=== PATIENT | female | born 1950 | race Caucasian/White ===

== ENCOUNTER 2019-07-12 10:21 | Outpatient (CLI) | payer MEDICARE, SELFPAY ==
[2019-07-12 10:34] LABS: Add Urine Microscopic? YES; Appearance Urine Clear (Clear); Bilirubin Urine Negative (Negative); Blood Urine 1+ (Negative); Color Urine Yellow (Yellow); Glucose Urine UA Negative (Negative); Ketones Urine Negative (Negative); Leukocyte Esterase Ur 2+ (Negative); Nitrate Urine Negative (Negative); Protein Urine Negative (Negative); Specific Grav Ur 1.025 (1.010-1.020); Urobilinogen Urine 0.2 mg/dL (0.2-1.0); pH Urine 5.5 (5.0-8.0)
[2019-07-12 11:03] LABS: Bacteria Urine 1+ /hpf; RBC Urine 0-2 /hpf (0-2); Squamous Epithelial Cell Urine Few /hpf (Few)
== END 2019-07-12 10:22 | disposition home or self-care (01) ==
LOC: CHSLAB 10:23
PROVIDERS: PCP Internal Medicine; Visit Provider Internal Medicine
DX: N39.0 Urinary tract infection, site not specified (principal)
CPT/HCPCS: 81001; 87086; 87088

== ENCOUNTER 2019-11-27 09:45 | Outpatient (CLI) | payer MEDICARE, SELFPAY ==
--- NOTE | ~2019-11-27 | DEXA_ITS ---
BMD(1) Young-Adult(2) Age-Matched(3) Region (g/cm2) T-score Z-score WHO Classification L1 1.104 -0.3 1.3 Normal L2 1.190 -0.2 1.4 Normal L3 1.080 -1.1 0.5 Osteopenia L4 1.137 -0.6 1.0 Normal L1-L4 1.129 -0.5 1.1 Normal Trend: L1-L4 Change vs Change vs Measured Age BMD(1) Baseline Previous Date (years) (g/cm2) (%) (%) 11[age]27/2019 [age] 1.129 6.1* 14.2* 11/24/2017 [age] 1.006 -5.5* -0.1 10/03/2014 [age] 1.007 -5.4* -5.4* 11/17/2008 [age] 1.064 baseline - * - Indicates significant change based on 95% confidence interval. 1 - Statistically 68% of repeat scans fall within 1SD (+- 0.010 g/cm2 for AP Spine L1-L4) 2 - [place] (Combined NHANES (ages 20-30) / KTM Advance (ages 20-40)) AP Spine Reference Population (v112) 3 - Matched for Age, Weight (females 25-100 kg), Ethnic 11 - World Health Organization - Definition of Osteoporosis and Osteopenia for Women: Normal = T-score at or above -1.0 SD; Osteopenia = T-score between -1.0 and -2.5 SD; Osteoporosis = T-score at or below -2.5 SD; (WHO definitions only apply when a young healthy Women reference database is used to determine T-scores.) Printed: 11/27/2019 10:14:33 AM (13.60)76:3.00:50.00:12.0 0.00:7.98 0.60x1.05 23.1:%Fat=40.7% 0.00:0.00 0.00:0.00 Verify bone is centered and there is sufficient tissue next to bone. Filename: [id number] Scan Mode: Standard;OneScan 37.0 [place] [id number] BMD(1) Young-Adult(2,7) Age-Matched(3) Region (g/cm2) T-score Z-score WHO Classification Neck Left 0.840 -1.4 0.1 Osteopenia Right 0.829 -1.5 0.0 Osteopenia Mean 0.835 -1.5 0.1 Osteopenia Difference 0.011 -0.1 -0.1 - Total Left 0.876 -1.0 0.3 Normal Right 0.814 -1.5 -0.2 Osteopenia Mean 0.845 -1.3 0.0 Osteopenia Difference 0.062 -0.5 -0.5 - Hip [place] Length Comparison (mm) (Right = 107.7 mm) (Mean = 105.3 mm) (Left = 104.0 mm) Trend: Total Mean Change vs Change vs Measured Age BMD(1) Baseline Previous Date (years) (g/cm2) (%) (%) 11[age]27/2019 [age] 0.845 -1.2 4.1* 10/03/2014 64.3 0.812 -5.0* -5.0* 11/17/2008 [age] 0.855 baseline - * - Indicates significant change based on 95% confidence interval. 1 - Statistically 68% of repeat scans fall within 1SD (+- 0.010 g/cm2 for DualFemur Total) 2 - [place] (Combined NHANES (ages 20-30) / KTM Advance (ages 20-40)) Femur Reference Population (v112) 3 - Matched for Age, Weight (females 25-100 kg), Ethnic 7 - DualFemur Total T-score difference is 0.5. Asymmetry is None. 11 - World Health Organization - Definition of Osteoporosis and Osteopenia for Women: Normal = T-score at or above -1.0 SD; Osteopenia = T-score between -1.0 and -2.5 SD; Osteoporosis = T-score at or below -2.5 SD; (WHO definitions only apply when a young healthy Women reference database is used to determine T-scores.) Printed: 11/27/2019 10:14:33 AM (13.60); Filename: [id number]; Right Femur; 17.2:%Fat=31.4%; Neck Angle (deg)= 60; Scan Mode: Standard 37.0 uGy; Left Femur; 17.0:%Fat=33.2%; Neck Angle (deg)= 63; Scan Mode: Standard 37.0 uGy Kohort [id number] Dear Alec Felder, Your patient Elo Zavaleta completed a BMD test on 11/27/2019 using the Kohort DXA System (analysis gabirel
== END 2019-11-27 09:46 | disposition home or self-care (01) ==
PROVIDERS: PCP Internal Medicine; Visit Provider Internal Medicine
DX: M81.0 Age-related osteoporosis without current pathological fracture (principal)
CPT/HCPCS: 77080

== ENCOUNTER 2019-12-06 10:54 | Outpatient (CLI) | payer MEDICARE, SELFPAY ==
--- NOTE | ~2019-12-06 | MM_ITS ---
EXAMINATION: MM screening [facility] BI w rosario HISTORY: Screening mammogram TECHNIQUE: Craniocaudal and mediolateral oblique 3-D tomosynthesis images were obtained and synthetic 2-D images were generated. CAD analysis was submitted and interpreted. COMPARISON: 12/04/2018, 11/15/1917, 10/10/2016 BREAST PARENCHYMAL COMPOSITION: There are scattered areas of fibroglandular density. FINDINGS: There is no evidence of suspicious mass, calcification, or architectural distortion to sugg est malignancy in either breast. There has been no suspicious interval change. IMPRESSION: 1. No mammographic evidence of malignancy. 2. Recommend routine screening mammography in one year. BI-RADS Category 1: Negative Reviewed, dictated and finalized at location A.
== END 2019-12-06 10:55 | disposition home or self-care (01) ==
PROVIDERS: PCP Internal Medicine; Visit Provider Internal Medicine
DX: Z12.31 Encounter for screening mammogram for malignant neoplasm of breast (principal)
CPT/HCPCS: 77063; 77067

== ENCOUNTER 2020-02-12 07:07 | Outpatient (CLI) | payer MEDICARE, SELFPAY ==
[2020-02-12 07:51] LABS: Add Urine Microscopic? NO; Appearance Urine Clear (Clear); Bilirubin Urine Negative (Negative); Blood Urine Negative (Negative); Color Urine Yellow (Yellow); Glucose Urine UA Negative (Negative); Ketones Urine Negative (Negative); Leukocyte Esterase Ur Negative (Negative); Nitrate Urine Negative (Negative); Protein Urine Negative (Negative); Specific Grav Ur 1.025 (1.010-1.020); Urobilinogen Urine 0.2 mg/dL (0.2-1.0)
[2020-02-12 08:41] LABS: Alanine Aminotransferase 24 U/L (14-59); Albumin Level 3.8 g/dL (3.4-5.0); Alkaline Phosphatase 59 U/L (46-116); Anion Gap 9 mmol/L (8-16); Aspartate Amino Transferase 20 U/L (15-37); Bilirubin,Total 0.4 mg/dL (0.00-1.00); Blood Urea Nitrogen 17 mg/dL (7-18); Calcium 9.1 mg/dL (8.5-10.1); Carbon Dioxide 27 mmol/L (21-32); Chloride 106 mmol/L (98-108); Cholesterol 220 mg/dL (0-200); Estimated Glomerular Filt Rate > 60; Free T3 2.27 pg/mL (2.18-3.98); Free T4 Free Thyroxine 1.05 ng/dL (0.76-1.46); Glucose 91 mg/dL (70-99); HDL Direct 67 mg/dL (40-60); LDL Cholesterol Calculated 139 mg/dL (<130); Osmolality Calculated 295 mOsm/kg (285-295); Potassium 4.5 mmol/L (3.5-5.1); Sodium 142 mmol/L (136-145); Thyroid Stimulating Hormone 1.69 uIU/mL (0.36-3.74); Total Protein 7.3 g/dL (6.4-8.2); Triglycerides 72 mg/dL (0-150)
[2020-02-15 10:22] LABS: Vitamin D 25 Hydroxy 29 ng/mL (30-100)
== END 2020-02-12 07:08 | disposition home or self-care (01) ==
PROVIDERS: PCP Internal Medicine; Visit Provider Internal Medicine
DX: E03.4 Atrophy of thyroid (acquired) (principal); E78.2 Mixed hyperlipidemia; M81.0 Age-related osteoporosis without current pathological fracture
CPT/HCPCS: 36415; 80053; 80061; 81003; 82306; 84439; 84443; 84481

== ENCOUNTER 2020-09-07 07:01 | Outpatient (CLI) | payer MEDICARE, SELFPAY ==
[2020-09-07 07:32] LABS: Appearance Urine Clear (Clear); Bilirubin Urine Negative (Negative); Color Urine Yellow (Yellow); Glucose Urine UA Negative (Negative); Ketones Urine Negative (Negative); Leukocyte Esterase Ur 1+ (Negative); Nitrate Urine Negative (Negative); Protein Urine Negative (Negative); Urobilinogen Urine 0.2 mg/dL (0.2-1.0); pH Urine 5.5 (5.0-8.0)
[2020-09-07 07:39] LABS: Add Urine Microscopic? YES; Bacteria Urine Trace /hpf; Blood Urine Trace-Intact (Negative); RBC Urine 0-2 /hpf (0-2); Squamous Epithelial Cell Urine Few /hpf (Few); WBC Urine 0-3 /hpf (0-3)
[2020-09-07 08:30] LABS: Alanine Aminotransferase 26 U/L (14-59); Albumin Level 3.8 g/dL (3.4-5.0); Alkaline Phosphatase 59 U/L (46-116); Anion Gap 4 mmol/L (8-16); Aspartate Amino Transferase 20 U/L (15-37); Bilirubin,Total 0.6 mg/dL (0.00-1.00); Blood Urea Nitrogen 24 mg/dL (7-18); Calcium 9.3 mg/dL (8.5-10.1); Carbon Dioxide 29 mmol/L (21-32); Chloride 105 mmol/L (98-108); Cholesterol 207 mg/dL (0-200); Creatine Kinase 122 U/L (26-192); Estimated Glomerular Filt Rate > 60; Free T3 2.53 pg/mL (2.18-3.98); Free T4 Free Thyroxine 1.03 ng/dL (0.76-1.46); Glucose 88 mg/dL (70-99); HDL Direct 66 mg/dL (40-60); LDL Cholesterol Calculated 124 mg/dL (<130); Osmolality Calculated 289 mOsm/kg (285-295); Potassium 4.6 mmol/L (3.5-5.1); Sodium 138 mmol/L (136-145); Thyroid Stimulating Hormone 2.84 uIU/mL (0.36-3.74); Total Protein 7.1 g/dL (6.4-8.2); Triglycerides 87 mg/dL (0-150)
[2020-09-09 18:17] LABS: Vitamin D 25 Hydroxy 30 ng/mL (30-100)
== END 2020-09-07 07:02 | disposition home or self-care (01) ==
LOC: CHSLAB 07:02
PROVIDERS: PCP Internal Medicine; Visit Provider Internal Medicine
DX: M81.0 Age-related osteoporosis without current pathological fracture (principal); E78.2 Mixed hyperlipidemia; E03.4 Atrophy of thyroid (acquired)
CPT/HCPCS: 36415; 80053; 80061; 81001; 82306; 82550; 84439; 84443; 84481

== ENCOUNTER 2020-09-23 08:36 | Outpatient (CLI) | payer MEDICARE, SELFPAY ==
--- NOTE | ~2020-09-23 | XR_ITS ---
EXAMINATION: XR_CERV2-3V_CR EXAM DATE: 09/23/2020 08:58 INDICATION: No known recent injury provided at this time. Pain of the neck. Limited range of motion. TECHNIQUE: Cervical spine frontal, lateral, open-mouth odontoid projections. There is no prior stud y for comparison. FINDINGS: There is moderate disc disease at C6-7, mild at the other cervical levels. Overall moderat e cervical facet arthropathy and lower cervical uncovertebral joint arthropathy. There is no evidence of acute cervical fracture. The odontoid process is intact. Pre-dens space is normal. Prevertebra l soft tissue is normal. There are no soft tissue abnormalities identified. The vertebral bodies ar e aligned in the AP dimension. Incidental numerous punctate lung calcifications, granulomata. IMPRESSION: 1. Moderate C6-7 disc disease. 2. Moderate arthropathy. Reviewed, dictated and finalized at location A.
== END 2020-09-23 08:37 | disposition home or self-care (01) ==
LOC: CHSIMG 08:37
PROVIDERS: PCP Internal Medicine; Visit Provider Internal Medicine
DX: M54.2 Cervicalgia (principal)
CPT/HCPCS: 72040

== ENCOUNTER 2020-09-30 15:50 | Outpatient (CLI) | payer MEDICARE, SELFPAY ==
--- NOTE | ~2020-09-30 | MR_ITS ---
EXAMINATION: MR cervical spine wo con DATE: 09/30/2020 20:10 INDICATION: Neck pain. TECHNIQUE: Magnetic resonance imaging (MRI) of the cervical spine was performed without intravenous c ontrast. Sequences included sagittal T2-weighted FSE, sagittal T2-weighted FS FSE, sagittal T1-weight ed FSE, axial MERGE, and axial T2-weighted FSE. COMPARISON: Cervical spine MRI 07/15/2008 FINDINGS: Bone alignment is normal. Vertebral body heights are normal. There is moderately decreased disc height at C6-C7. The spinal cord signal intensity is normal. The following disc levels are speci fically discussed: C2-C3: The disc does not extend beyond the endplate margin. There is no uncovertebral joint osteoarth ritis. There is moderate right and mild left facet joint osteoarthritis. There is no neural foraminal stenosis. There is no central canal stenosis. C3-C4: The disc does not extend beyond the endplate margin. There is no uncovertebral joint osteoarth ritis. There is mild bilateral facet joint osteoarthritis. There is no neural foraminal stenosis. The re is no central canal stenosis. C4-C5: The disc is bulging. There is no uncovertebral joint osteoarthritis. There is moderate left fa cet joint osteoarthritis. There is no neural foraminal stenosis. There is mild central canal stenosis . C5-C6: The disc is bulging. There is mild right uncovertebral joint osteoarthritis. There is mild ravi ateral facet joint osteoarthritis. There is mild right neural foraminal stenosis. There is mild centr al canal stenosis. C6-C7: The disc is bulging. There is moderate bilateral uncovertebral joint osteoarthritis. There is mild bilateral facet joint osteoarthritis. There is moderate bilateral neural foraminal stenosis. The re is mild central canal stenosis. C7-T1: There is a central protrusion. There is no uncovertebral joint osteoarthritis. There is modera te bilateral facet joint osteoarthritis. There is no neural foraminal stenosis. There is no central c anal stenosis. IMPRESSION: 1. Moderate cervical spondylosis, worsened from 07/15/2008. Reviewed, dictated and finalized at location A.
== END 2020-09-30 15:51 | disposition home or self-care (01) ==
LOC: CHSIMG 15:50
PROVIDERS: PCP Internal Medicine; Visit Provider Internal Medicine
DX: M54.2 Cervicalgia (principal); M47.812 Spondylosis without myelopathy or radiculopathy, cervical region
CPT/HCPCS: 72141

== ENCOUNTER 2020-12-08 10:12 | Outpatient (CLI) | payer MEDICARE, SELFPAY ==
--- NOTE | ~2020-12-08 | DEXA_ITS ---
Bone Density Report Name: Elo Zavaleta Age: 70 Sex: Female Ethnicity: White Date of : 1950 Indication: osteopenia; monitoring treatment; height loss; hysterectomy; Referring Provider: Alec Felder Study: Bone densitometry was performed. Exam Date: December 08, 2020 Accession number: [id number] Bone Density: Region BMD T-score Z-score Classification AP Spine(L1-L4) 0.959 -0.8 1.2 Normal Femoral Neck (Left) 0.669 -1.6 0.1 Osteopenia Total Hip (Left) 0.809 -1.1 0.3 Osteopenia Femoral Neck (Right) 0.688 -1.4 0.3 Osteopenia Total Hip (Right) 0.754 -1.5 -0.1 Osteopenia Femoral Neck Mean 0.679 -1.5 0.2 Osteopenia Total Hip Mean 0.782 -1.3 0.1 Osteopenia World Health Organization criteria for BMD impression classify patients as: Normal (T-score at or above -1.0), Osteopenia (T-score between -1.0 and -2.5), or Osteoporosis (T-score at or below -2.5). 10-year Fracture Risk: FRAX not reported because: Treated for osteoporosis Previous Exams: Region Exam Age BMD T-score BMD Change BMD Change Date g/cm2 vs Baseline vs Previous AP Spine (L1-L4) 12/08/2020 70 0.959 -0.8 0.020 (2.1%)# -0.040 (-4.0%) 11/27/2019 69 0.998 -0.4 0.059 (6.3%)* 0.113 (12.8%)* 11/24/2017 67 0.885 -1.5 -0.054 (-5.7%) -0.001 (-0.2%) 10/03/2014 64 0.887 -1.5 -0.052 (-5.6%) -0.052 (-5.6%) 11/17/2008 58 0.939 -1.0 Total Hip(Left) 12/08/2020 70 0.809 -1.1 -0.006 (-0.7%) -0.005 (-0.6%) 11/27/2019 69 0.814 -1.1 -0.002 (-0.2%) 0.020 (2.5%) 11/24/2017 67 0.794 -1.2 -0.021 (-2.6%) 0.014 (1.9%) 10/03/2014 64 0.779 -1.3 -0.036 (-4.4%) -0.036 (-4.4%) 11/17/2008 58 0.815 -1.0 Total Hip(Right) 12/08/2020 70 0.754 -1.5 -0.017 (-2.2%) 0.001 (0.1%)# 11/27/2019 69 0.753 -1.5 -0.017 (-2.3%) 0.029 (4.1%)* 10/03/2014 64 0.724 -1.8 -0.047 (-6.1%) -0.047 (-6.1%) 11/17/2008 58 0.771 -1.4 *Denotes significance at 95% confidence level, LSC for AP Spine = 0.022 g/cm2, LSC for Total Hip = 0.027 g/cm2 # Denotes dissimilar scan types or analysis methods Clinical Information Provided by Patient: Is being treated for osteoporosis Has used the following medications: Boniva (i.e. ibandronate), Fosamax (i.e. alendronate), Prolia (i.e. denosumab), Vitamin D Has the following medical conditions: Hysterectomy Patient maximum height was 66 Menopause Age: 40 No regular weight bearing exercise Drinks caffeinated beverages Onset of menses at age 12 Numb
--- NOTE | ~2020-12-08 | MM_ITS ---
EXAMINATION: MM screening [facility] BI w rosario HISTORY: Screening mammogram TECHNIQUE: Craniocaudal and mediolateral oblique 3-D tomosynthesis images were obtained and synthetic 2-D images were generated. CAD analysis was submitted and interpreted. COMPARISON: 12/06/2019, 12/14/2018, 11/24/2017 bilateral digital screening mammogram examinations BREAST PARENCHYMAL COMPOSITION: There are scattered areas of fibroglandular density. FINDINGS: There is no evidence of suspicious mass, calcification, or architectural distortion to sugg est malignancy in either breast. There has been no suspicious interval change. IMPRESSION: 1. No mammographic evidence of malignancy. 2. Recommend routine screening mammography in one year. BI-RADS Category 1: Negative Reviewed, dictated and finalized at location B.
== END 2020-12-08 10:13 | disposition home or self-care (01) ==
LOC: CHSIMG 10:13
PROVIDERS: PCP Internal Medicine; Visit Provider Internal Medicine
DX: M81.0 Age-related osteoporosis without current pathological fracture (principal); Z12.31 Encounter for screening mammogram for malignant neoplasm of breast
CPT/HCPCS: 77063; 77067; 77080

== ENCOUNTER 2021-01-21 07:53 | Outpatient (RCR) | payer MEDICARE, SELFPAY ==
--- NOTE | 2021-01-21 09:02 | PTOPEVAL ---
Thank you for referring Elo Zavaleta to [facility].? The patient is scheduled to be seen for therapy? ____x/week for ___ weeks. Please review, sign, date and return this plan of care ROXANNA. I agree with and certify that the following plan of care is medically necessary. Referring Physician Date Admitting Provider: Attending Provider: Kyleigh Perez, PATIENT CARRIER-BC Referring Provider: *PT Outpatient Evaluation Start: 01/21/21 07:57 Freq: Status: Active Protocol: Document 01/21/21 07:58 ACR (Rec: 01/21/21 09:02 ACR [id number]) Therapy Assessment Status Assessment Status Assessment Status Evaluation Evaluation Information Problem Diagnosis neck pain Onset 10/16/20 Subjective Information Patient states that she Query Text:As Reported By Patient/ started having neck pain a Family couple months ago. She states that she got an injection on . She states that she does not have any radicular symptoms. She states that her arthritis is so bad that she drops things frequently. She states that she has the most difficulty at night when she watches TV to find proper support on her neck. Patient states she has difficulty with heavy lifting and working overhead. She states that she is unable to sit in a chair and look to her L because it causes a pulling and aching feeling. The patient states that her goal for therapy is to decrease pain. Prior Level of Function Activity Level (Last 3 Months) Occupation retired Hand Dominance Right Activity of Daily Living Ability Independent Indoor/Home Mobility Independent Community Mobility Independent Stairs Ability Independent Functional Cognition (Planning, Shopping Independent , Taking Medications) Cooking Yes Cleaning Yes Laundry Yes Shopping Yes Driving Yes Pain Assessment Timing of Pain Assessment Timing of Pain Assessment Assessment Pain Scale Pain Scale Used Numeric (1 - 10) Self Report Pain Assessment Neck Reported Pain Level 0 Greatest Pain
--- NOTE | 2021-02-16 08:49 | PTOPEVAL ---
Thank you for referring Elo Zavaleta to [facility].? The patient is scheduled to be seen for therapy? ____x/week for ___ weeks. Please review, sign, date and return this plan of care ROXANNA. I agree with and certify that the following plan of care is medically necessary. Referring Physician Date Admitting Provider: Attending Provider: Kyleigh Perez, DATA ANALYTICS ARCHITECT-BC Referring Provider: *PT Outpatient Evaluation Start: 01/21/21 07:57 Freq: Status: Active Protocol: Document 02/16/21 08:00 ACR (Rec: 02/16/21 08:48 ACR [id number]) Therapy Assessment Status Assessment Status Assessment Status Discharge Evaluation Information Problem Diagnosis neck pain Onset 10/16/20 Subjective Information Patient reports that since Query Text:As Reported By Patient/ beginning therapy she is able Family to do everything that she needs to do without significant increase in pain. She states that if she overdoes it then she gets some achiness in her neck. She states she does her HEP at home and would like to be discharged at this time. Pain Assessment Timing of Pain Assessment Timing of Pain Assessment Assessment Pain Scale Pain Scale Used Numeric (1 - 10) Self Report Pain Assessment Neck Reported Pain Level 1 Greatest Pain Intensity 3 Pain Score Pain Score 1: Self Report Interventions Used Interventions Used By Clinicians Activity or ADL's,Exercise Cervical and Lumbar ROM Cervical ROM Cervical Flexion (0-60) 48 Query Text:Active in Degrees Cervical Extension (0-70) 45 Query Text:Active in Degrees Cervical Lateral Flexion Right (0-50) 45 Query Text:Active in Degrees Cervical Lateral Flexion Left (0-50) 40 Query Text:Active in Degrees Cervical Rotation Right (0-90) 82 Query Text:Active in Degrees Cervical Rotation Left (0-90) 86 Query Text:Active in Degrees Cervical and Lumbar Muscle Testing Cervical Muscle Testing Cervical Flexion 4+ Good+ Upper Extremity Muscle Strength Testing Scapular/Shoulder Right Shoulder Flexion Strength 5 Normal Shoulder Abduction Strength 5 Normal Shoulder Medial Rotation Strength 5 Normal Shoulder Lateral Rotation Strength 5 Normal Left Shoulder Flexion Strength 5 Normal Shoulder Abduction Strength 5 Normal Shoulder Medial Rotation Strength 5 Normal Shoulder Lateral Rotation Strength 5 Normal Muscle Length Testing Muscle Length Testing Upper Trapezius Muscle Length (R) Mild
== END 2021-02-16 10:20 | disposition home or self-care (01) ==
LOC: CHSPT 07:53
PROVIDERS: PCP Internal Medicine; Visit Provider Nurse Practitioner Adult Health
DX: M54.12 Radiculopathy, cervical region (principal); M54.2 Cervicalgia; M79.10 Myalgia, unspecified site
CPT/HCPCS: 97014; 97110; 97140; 97161; G0283

== ENCOUNTER 2021-03-05 07:27 | Outpatient (CLI) | payer MEDICARE, SELFPAY ==
[2021-03-05 07:50] LABS: Appearance Urine Clear (Clear); Bilirubin Urine Negative (Negative); Color Urine Light Yellow (Yellow); Glucose Urine UA Negative (Negative); Ketones Urine Negative (Negative); Leukocyte Esterase Ur 1+ (Negative); Nitrate Urine Negative (Negative); Protein Urine Negative (Negative); Specific Grav Ur <= 1.005 (1.010-1.020); Urobilinogen Urine 0.2 mg/dL (0.2-1.0); pH Urine 6.5 (5.0-8.0)
[2021-03-05 08:01] LABS: Add Urine Microscopic? YES; Bacteria Urine Trace /hpf; Blood Urine Trace-Intact (Negative); RBC Urine None seen /hpf (0-2); Squamous Epithelial Cell Urine Few /hpf (Few); WBC Urine 0-3 /hpf (0-3)
[2021-03-05 08:51] LABS: Alanine Aminotransferase 28 U/L (14-59); Albumin Level 3.9 g/dL (3.4-5.0); Alkaline Phosphatase 60 U/L (46-116); Anion Gap 6 mmol/L (8-16); Aspartate Amino Transferase 17 U/L (15-37); Bilirubin,Total 0.5 mg/dL (0.00-1.00); Blood Urea Nitrogen 25 mg/dL (7-18); Calcium 8.8 mg/dL (8.5-10.1); Carbon Dioxide 31 mmol/L (21-32); Chloride 105 mmol/L (98-108); Cholesterol 224 mg/dL (0-200); Estimated Glomerular Filt Rate > 60; Free T3 2.13 pg/mL (2.18-3.98); Free T4 Free Thyroxine 0.98 ng/dL (0.76-1.46); Glucose 81 mg/dL (70-99); HDL Direct 68 mg/dL (40-60); LDL Cholesterol Calculated 144 mg/dL (<130); Osmolality Calculated 297 mOsm/kg (285-295); Potassium 4.6 mmol/L (3.5-5.1); Sodium 142 mmol/L (136-145); Thyroid Stimulating Hormone 3.12 uIU/mL (0.36-3.74); Total Protein 7.4 g/dL (6.4-8.2); Triglycerides 61 mg/dL (0-150)
[2021-03-09 00:28] LABS: Vitamin D 25 Hydroxy 32 ng/mL (30-100)
== END 2021-03-05 07:28 | disposition home or self-care (01) ==
LOC: CHSLAB 07:29
PROVIDERS: PCP Internal Medicine; Visit Provider Internal Medicine
DX: M81.0 Age-related osteoporosis without current pathological fracture (principal); I10 Essential (primary) hypertension; E78.2 Mixed hyperlipidemia; E03.4 Atrophy of thyroid (acquired)
CPT/HCPCS: 36415; 80053; 80061; 81001; 82306; 84439; 84443; 84481

== ENCOUNTER 2021-06-07 09:35 | Outpatient (CLI) | payer MEDICARE, SELFPAY ==
[2021-06-07 10:38] LABS: SARS-CoV-2 Ag Positive (Negative)
[2021-06-07 11:04] LABS: Influenza Control Valid (Valid)
== END 2021-06-07 09:36 | disposition home or self-care (01) ==
LOC: CHSLAB 09:38
PROVIDERS: PCP Internal Medicine; Visit Provider Internal Medicine
DX: U07.1 COVID-19 (principal); J06.9 Acute upper respiratory infection, unspecified
CPT/HCPCS: 87081; 87426; 87804; 87880; C9803

== ENCOUNTER 2021-06-21 07:05 | Outpatient (CLI) | payer MEDICARE, SELFPAY ==
[2021-06-21 08:04] LABS: Alanine Aminotransferase 23 U/L (14-59); Albumin Level 3.6 g/dL (3.4-5.0); Alkaline Phosphatase 60 U/L (46-116); Anion Gap 10 mmol/L (8-16); Aspartate Amino Transferase 16 U/L (15-37); Bilirubin,Total 0.3 mg/dL (0.00-1.00); Blood Urea Nitrogen 23 mg/dL (7-18); Calcium 9.1 mg/dL (8.5-10.1); Carbon Dioxide 26 mmol/L (21-32); Chloride 105 mmol/L (98-108); Cholesterol 213 mg/dL (0-200); Estimated Glomerular Filt Rate > 60; Free T3 2.27 pg/mL (2.18-3.98); Free T4 Free Thyroxine 1.14 ng/dL (0.76-1.46); Glucose 92 mg/dL (70-99); HDL Direct 61 mg/dL (40-60); LDL Cholesterol Calculated 138 mg/dL (<130); Osmolality Calculated 295 mOsm/kg (285-295); Potassium 4.5 mmol/L (3.5-5.1); Sodium 141 mmol/L (136-145); Thyroid Stimulating Hormone 0.49 uIU/mL (0.36-3.74); Total Protein 6.9 g/dL (6.4-8.2); Triglycerides 70 mg/dL (0-150)
== END 2021-06-21 07:06 | disposition home or self-care (01) ==
LOC: CHSLAB 07:07
PROVIDERS: PCP Internal Medicine; Visit Provider Internal Medicine
DX: E03.4 Atrophy of thyroid (acquired) (principal); E78.2 Mixed hyperlipidemia; I10 Essential (primary) hypertension
CPT/HCPCS: 36415; 80053; 80061; 84439; 84443; 84481

== ENCOUNTER 2021-12-10 07:19 | Outpatient (CLI) | payer MEDICARE, SELFPAY ==
--- NOTE | ~2021-12-10 | MM_ITS ---
EXAMINATION: MM screening [facility] BI w rosario HISTORY: Screening mammogram TECHNIQUE: Craniocaudal and mediolateral oblique 3-D tomosynthesis images were obtained and synthetic 2-D images were generated. CAD analysis was submitted and interpreted. COMPARISON: 12/08/2020, 12/06/2019, 12/04/2018 BREAST PARENCHYMAL COMPOSITION: There are scattered areas of fibroglandular density. FINDINGS: Stable focal asymmetry is noted in the upper outer quadrant of the left breast. There is no suspicious mass, calcification, or architectural distortion to suggest malignancy in either breast. There has been no suspicious interval change. IMPRESSION: 1. No mammographic evidence of malignancy. 2. Recommend routine screening mammography in one year. BI-RADS Category 2: Benign finding(s). Reviewed, dictated and finalized at location A.
== END 2021-12-10 07:20 | disposition home or self-care (01) ==
LOC: CHSIMG 07:20
PROVIDERS: PCP Internal Medicine; Visit Provider Internal Medicine
DX: Z12.31 Encounter for screening mammogram for malignant neoplasm of breast (principal)
CPT/HCPCS: 77063; 77067

== ENCOUNTER 2022-01-05 08:11 | Outpatient (CLI) | payer MEDICARE, SELFPAY ==
[2022-01-05 08:23] LABS: Add Urine Microscopic? YES; Appearance Urine Clear (Clear); Basophils Absolute Auto 0.08 K/mm3 (0.00-0.10); Bilirubin Urine Negative (Negative); Blood Urine Negative (Negative); Color Urine Light Yellow (Yellow); Eosinophils Absolute Auto 0.42 K/mm3 (0.02-0.50); Eosinophils Percent Auto 5.4 % (1.0-6.0); Glucose Urine UA Negative (Negative); Hematocrit 37.1 % (35.0-42.0); Hemoglobin 11.9 g/dL (11.7-13.8); Immature Granulocyte Absolute 0.03 K/mm3 (0.00-0.00); Immature Granulocyte Percent A 0.4 % (0.0-0.0); Ketones Urine Negative (Negative); Leukocyte Esterase Ur Trace (Negative); Lymphocytes Absolute Auto 1.29 K/mm3 (1.10-4.50); Lymphocytes Percent Auto 16.7 % (18.0-42.0); Mean Corpuscular HGB Conc 32.1 g/dL (32.0-36.0); Mean Corpuscular Hemoglobin 30.4 pg (27.0-31.0); Mean Corpuscular Volume 94.6 fL (78.0-102.0); Mean Platelet Volume 9.5 fl (9.2-11.8); Monocytes Absolute Auto 0.66 K/mm3 (0.10-0.90); Monocytes Percent Auto 8.5 % (2.0-11.0); Neutrophils Absolute Auto 5.2 K/mm3 (1.7-7.2); Nitrate Urine Positive (Negative); Platelet Count Result 288 K/mm3 (150-420); Protein Urine Negative (Negative); Red Blood Count 3.92 M/mm3 (4.20-5.40); Red Cell Distribution Width 12.6 % (11.6-14.4); Urobilinogen Urine 0.2 mg/dL (0.2-1.0); White Blood Count 7.7 K/mm3 (4.8-10.8)
[2022-01-05 08:40] LABS: RBC Urine None seen /hpf (0-2); Squamous Epithelial Cell Urine Occasional /hpf (Few); WBC Urine 0-3 /hpf (0-3)
[2022-01-05 08:41] LABS: Bacteria Urine 3+ /hpf
[2022-01-05 09:17] LABS: Alanine Aminotransferase 155 U/L (14-59); Albumin Level 3.9 g/dL (3.4-5.0); Alkaline Phosphatase 67 U/L (46-116); Anion Gap 8 mmol/L (8-16); Aspartate Amino Transferase 84 U/L (15-37); Bilirubin,Total 0.5 mg/dL (0.00-1.00); Blood Urea Nitrogen 25 mg/dL (7-18); Calcium 9.5 mg/dL (8.5-10.1); Carbon Dioxide 28 mmol/L (21-32); Chloride 105 mmol/L (98-108); Cholesterol 189 mg/dL (0-200); Creatine Kinase 108 U/L (26-192); Estimated Glomerular Filt Rate 54; Free T4 Free Thyroxine 1.38 ng/dL (0.76-1.46); Glucose 90 mg/dL (70-99); HDL Direct 67 mg/dL (40-60); LDL Cholesterol Calculated 110 mg/dL (<130); Osmolality Calculated 296 mOsm/kg (285-295); Potassium 4.6 mmol/L (3.5-5.1); Sodium 141 mmol/L (136-145); Thyroid Stimulating Hormone 1.01 uIU/mL (0.36-3.74); Total Protein 7.2 g/dL (6.4-8.2); Triglycerides 60 mg/dL (0-150)
[2022-01-08 19:07] LABS: Vitamin D 25 Hydroxy 37 ng/mL (30-100)
== END 2022-01-05 08:12 | disposition home or self-care (01) ==
LOC: CHSLAB 08:13
PROVIDERS: PCP Internal Medicine; Visit Provider Internal Medicine
DX: M81.0 Age-related osteoporosis without current pathological fracture (principal); E78.2 Mixed hyperlipidemia; I10 Essential (primary) hypertension; E03.4 Atrophy of thyroid (acquired); K21.9 Gastro-esophageal reflux disease without esophagitis; R31.9 Hematuria, unspecified
CPT/HCPCS: 36415; 80053; 80061; 81001; 82306; 82550; 84439; 84443; 84481; 85025; 87077; 87086; 87088; 87186

== ENCOUNTER 2022-02-11 09:16 | Outpatient (CLI) | payer MEDICARE, SELFPAY ==
--- NOTE | ~2022-02-11 | CT_ITS ---
EXAMINATION: CT abdomen w con INDICATION: Elevated liver enzymes TECHNIQUE: Computed tomographic images of the abdomen were obtained after the administration of 100 c c of Omnipaque 350 intravenous contrast. The dose-length product (DLP) was 248.15 mGy-cm. Automated e xposure control and iterative reconstruction technique were employed. COMPARISON: None available FINDINGS: The lung bases are clear. The heart size is normal. There is a small sliding hiatal hernia. The gallbladder is surgically absent. The liver, spleen, pancreas, and adrenal glands are normal. Th e kidneys are unremarkable. 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 There are n o pathologically enlarged abdominal lymph nodes. There is no free intraperitoneal gas or evidence of bowel obstruction. There is severe lumbar spondylosis at L5-S1. IMPRESSION: 1. No CT correlate for the patient's symptoms. Reviewed, dictated and finalized at location B.
[2022-02-11 09:44] LABS: Estimated Glomerular Filt Rate 50
== END 2022-02-11 09:17 | disposition home or self-care (01) ==
LOC: CHSIMG 09:18
PROVIDERS: PCP Internal Medicine; Visit Provider Internal Medicine
DX: R94.5 Abnormal results of liver function studies (principal)
CPT/HCPCS: 74160; Q9967

== ENCOUNTER 2022-05-06 10:32 | Outpatient (CLI) | payer MEDICARE, SELFPAY ==
--- NOTE | ~2022-05-06 | XR_ITS ---
EXAMINATION:XR cervical spine 4-5V DATE: 05/06/2022 10:58 INDICATION: Neck pain TECHNIQUE: AP, lateral in neutral, flexion, extension, and odontoid views of the cervical spine are p rovided. COMPARISON: 09/23/2020 FINDINGS: Alignment is normal. The odontoid is intact. No fracture is identified. There is unchanged moderate loss of intervertebral disc space height at C6-7. No laxity is present with flexion or exten [place]. The vertebral body heights are maintained. Prevertebral soft tissues are normal. There is multi level mild to moderate facet and uncovertebral joint osteoarthritis. IMPRESSION: 1. Moderate cervical spondylosis without acute findings or significant interval change. Reviewed, dictated and finalized at location A. IX SUPERVISOR
== END 2022-05-06 10:33 | disposition home or self-care (01) ==
LOC: CHSLAB 10:34
PROVIDERS: PCP Internal Medicine; Visit Provider Internal Medicine
DX: M54.2 Cervicalgia (principal)
CPT/HCPCS: 72050

== ENCOUNTER 2022-06-27 07:48 | Outpatient (CLI) | payer MEDICARE, SELFPAY ==
--- NOTE | ~2022-06-27 | XR_ITS ---
EXAMINATION: XR foot LT min 3V DATE: 06/27/2022 08:06 INDICATION: Painful lump of the left foot TECHNIQUE: Dorsoplantar, lateral, and oblique views of the left foot were obtained. COMPARISON: None. FINDINGS: A soft tissue mass projects at the mid foot near the navicular and medial cuneiform bones. No underlying osseous abnormality is identified. There is moderate osteoarthritis of the interphalang eal joints of the third digit and second distal interphalangeal joint and fusion of the fourth and fi fth distal interphalangeal joints. IMPRESSION: 1. Soft tissue mass midfoot near the medial cuneiform and navicular bones without acute underlying os seous abnormality. Reviewed, dictated and finalized at location B. D WASTE FACILITY OPERATOR IMPRESSION: 1. Soft tissue mass midfoot near the medial cuneiform and navicular bones witho ut acute underlying osseous abnormality.
== END 2022-06-27 07:49 | disposition home or self-care (01) ==
LOC: CHSIMG 07:50
PROVIDERS: PCP Internal Medicine; Visit Provider Orthopaedic Surgery
DX: M79.672 Pain in left foot (principal); R22.42 Localized swelling, mass and lump, left lower limb
CPT/HCPCS: 73630

== ENCOUNTER 2022-07-04 09:23 | Outpatient (CLI) | payer MEDICARE, SELFPAY ==
--- NOTE | 2022-07-04 09:31 | ECG_ITS ---
Measurements Intervals [place] Rate: 79 P: 53 [place]: 168 QRS: 30 QRSD: 73 T: 33 QT: 360 QTc: 414 Interpretive Statements SINUS RHYTHM BASELINE ARTIFACT LOW QRS VOLTAGE IN PRECORDIAL LEADS BORDERLINE ECG NO PREVIOUS ECG AVAILABLE FOR COMPARISON Electronically Signed On 07-04-2022 16:19:06 CAMPAIGN MANAGER by Adonay Olmedo M.D.
[2022-07-04 10:42] LABS: Anion Gap 3 mmol/L (8-16); Blood Urea Nitrogen 27 mg/dL (7-17); Calcium 8.8 mg/dL (8.4-10.2); Carbon Dioxide 26 mmol/L (22-30); Chloride 108 mmol/L (98-107); Estimated Glomerular Filt Rate > 60; Glucose 81 mg/dL (65-110); Potassium 4.4 mmol/L (3.4-5.0); Sodium 137 mmol/L (137-145)
== END 2022-07-04 09:24 | disposition home or self-care (01) ==
LOC: ANHSURGERY 09:27
PROVIDERS: Anesthesiology; PCP Internal Medicine; Visit Provider Orthopaedic Surgery
DX: I10 Essential (primary) hypertension (principal); Z01.818 Encounter for other preprocedural examination
CPT/HCPCS: 36415; 80048; 93005

== ENCOUNTER 2022-07-07 02:17 | Day surgery (SDC) | payer MEDICARE, SELFPAY ==
--- NOTE | 2022-06-30 13:30 | PC.NURSE ---
Report to the Outpatient Waiting Room, entrance under the green pavilion located off [facility], at time _1000 on date __07/07/22 . Planned Procedure Time: _1200 . Time changes happen often and if your time is changed the preop area will call you the afternoon before. - You and your visitor will be asked to self-screen and do not enter if you have any COVID symptoms. - Only one visitor is requested with a max of two and NO children visitors are allowed at this time. - The patient visitor may be requested to leave or wait in car when not with patient due to distancing restrictions. - A mask is optional within the hospital at this time. Patients may have clear liquids (water, carbonated beverages, clear teas, apple juice) until 3 hours prior to surgery with a maximum of 20 ounces. - No food from midnight until time of surgery - Infants may have breast milk until 4 hours before surgery, formula 6 hours prior to surgery. - Children will be allowed to drink immediately following surgery. If applicable, please bring a bottle or sippy cup to assist with drinking. Juice, water, soda, and popsicles are readily available. For infants on formula, please bring formula the day of surgery. Pacifiers are allowed. Take the following medications with a SIP of water the morning of surgery: ____LEVOTHYROXINE DO NOT STOP ANY OF YOUR OTHER PRESCRIPTION MEDICATIONS PRIOR TO SURGERY ?EXCEPT THE FOLLOWING Medications to discontinue per physician __PT STATES ASPIRIN AND CELECOXIB LAST DOSE 06/30/[address] MARSHALL__. ALL VITAMINS AND SUPPLEMENTS 3 DAYS PRE OP . LAST DOSE 07/03/22 Please no make-up, nail nepali, hairspray, perfume, deodorant, or body powder the day of surgery. No jewelry (including any body piercings) or valuables the day of surgery, leave them at home. Please take a shower or bath the night before, or the morning of, surgery with an antibacterial soap. Wear comfortable, loose fitting clothing. Children are encouraged to wear pajamas. - Jewelry must be removed prior to entering the operating room. Rings and piercings that are not removed may be cut off. - The hospital will not accept responsibility for valuables. - Please leave all valuables, including medications, at home the day of surgery. If you are going home after surgery, a licensed class a truck driver must drive you home. - NO public transportation without another adult if you receive anesthesia. - We recommend that an adult stay with you for 24 hours following discharge. - We also recommend that you do not drive, make important decision, drink alcoholic beverages, or take any drugs that were not prescribed by your health care provider for at least 24 hours after your discharge time. For Pediatric surgeries, we recommend two adults accompany the child home. Follow any additional instructions given to you from your surgeon. If you or anyone in your household have experienced Covid symptoms in the past week, please notify your surgeon or the nurse liaison at the phone number below for possible testing. Telephone instructions given to ____PATIENT and asked if any additional questions and then verbalized understanding. Patient advised to call surgeon office or pre surgery nurse liaison [phone] if any additional questions.
[2022-06-30 13:40] VITALS: BMI 23.6
--- NOTE | 2022-07-06 13:50 | WPDANESEPPF ---
Anes - Initial Pre Proc Eval Procedure: Operation Date: 07/07/22 12:00 Proposed Procedures p Excision Ganglion Cyst Left Foot - Arnold Hassan MD Date/Time: 07/06/22 13:50 Surgeon: Arnold Hassan MD Pre Op Diagnosis: ganglion cyst left foot Patient Data Age: 72 Gender: F Height: 1.68 m Weight: 66.25 kg Allergies Allergy/AdvReac Type Severity Reaction Status Date / Time codeine Allergy Severe NAUSEA AND Verified 07/07/22 10:48 VOMITING erythromycin base Allergy Severe NAUSEA AND Verified 07/07/22 10:48 VOMITING Home Medications Medication Instructions Recorded Confirmed Type aspirin 81 mg tablet,delayed 81 mg PO DAILY 11/22/21 06/30/22 History release celecoxib 200 mg capsule (Celebrex) 200 mg PO DAILY 11/22/21 06/30/22 History cholecalciferol (vitamin D3) 25 25 mcg PO DAILY 11/22/21 06/30/22 History mcg (1,000 unit) capsule denosumab 60 mg/mL subcutaneous 60 mg subcut [id number] 11/22/21 06/30/22 History syringe (Prolia) famotidine 20 mg tablet 20 mg PO DAILY 11/22/21 06/30/22 History hydrochlorothiazide 12.5 mg capsule 12.5 mg PO DAILY 11/22/21 06/30/22 History levothyroxine 75 mcg tablet 75 mcg PO DAILY 11/22/21 07/07/22 History (Synthroid) losartan 50 mg tablet 50 mg PO DAILY 11/22/21 06/30/22 History cranberry extract-vitamin C 250 1 cap PO DAILY 06/30/22 06/30/22 History mg-60 mg capsule tizanidine 4 mg tablet 2 mg PO BID 06/30/22 06/30/22 History hydrocodone 5 mg-acetaminophen 325 1 tablet PO Q6H PRN pain #20 tabs 07/07/22 Rx mg tablet ibuprofen 800 mg tablet 800 mg PO TID PRN pain #30 tabs 07/07/22 Rx ondansetron 8 mg disintegrating 8 mg PO Q8H PRN nausea and 07/07/22 Rx tablet vomiting #10 tabs sennosides 8.6 mg-docusate sodium 1 tab-cap PO BID PRN constipation 07/07/22 Rx 50 mg tablet (Senna with Docusate #20 tabs Sodium) Patient hx anesthesia problems: none Family hx anesthesia problems: none Results Review: All pre-operative results and documents have been reviewed as part of the pre-operative evaluation. [facility] Past Medical History Medical History (Updated 06/27/22 @ 10:05 by Arnold Hassan MD) Ganglion cyst of left foot GERD (gastroesophageal reflux disease) Hyperlipidemia Hypertension Hypothyroidism Surgical History Surgical History H/O section H/O of hysterectomy with bilateral oophorectomy Hx of appendectomy Hx of cholecystectomy Social History Social History Smoking status: Never smoker Alcohol intake: current Drinks per week: 1 Alcohol use details: beer weekly Living arrangements: with family Occupation/Education: retired Spiritual care concerns: No Anes - Eval Final PreProcedure Day of Procedure 07/06/22 13:50 Patient weight: obese Heart: regular rate and rhythm Lungs: clear to auscultation Airway: Mallampati scale class II Neurological: alert and oriented Last oral intake: >/= 8 hours ASA classification: III Emergent: no Anesthetic plan: proceed Anesthesia type and monitoring: general LMA and standard monitoring Results Review: All pre-operative results and documents have been reviewed as part of the pre-operative evaluation. Informed Consent: The patient's anesthetic plan and its attendant risks and benefits were discussed with the patient/family/POA. Questions were solicited and answers provided to the satisfaction of the patient/family/POA.
[2022-07-07] VITALS (8 sets, daily range): BP systolic 147–169; BP diastolic 68–91; PULSE 58–92; RESP 14–16; TEMP 36.3; O2SAT 99–100
--- NOTE | 2022-07-07 07:14 | WPDHPUPDATE1 ---
History and Physical Update Update Date/Time: 07/07/22 07:14 History and Physical has been reviewed, including an updated exam of the patient. There are NO changes in the patient's condition. Risks, benefits, and alternatives have been discussed and questions answered. Patient agrees to proceed with procedure.
[2022-07-07] MEDS: KETOROLAC 15 MG/ML VIAL (*BKC) IV PUSH (10:40)
[2022-07-07] MEDS: LACTATED RINGERS 1,000 ML 30 ML IV CONT (10:40)
[2022-07-07] MEDS: ceFAZolin 2 GM/D5W 50 ML 2 GM/50 ML BAG IVPB (11:35)
[2022-07-07] MEDS: BUPivacaine HCL 0.5% PF 30 ML VIAL INFILTRATE (11:54)
--- NOTE | 2022-07-07 12:29 | W.PM.PROC2 ---
Procedure Note - Detailed Date of Procedure 07/07/22 Pre-op Diagnosis ganglion cyst left foot Post-op Diagnosis Same Procedure Performed Excision ganglion cyst left foot Surgeon Arnold Hassan MD Business Info Consultant 1st collections assistant Anesthesia General Indications 72-year-old woman with a large dorsal mid foot ganglion cyst. Attempted aspiration yielded fluid id with ganglion cyst. Recurrence over the past 2 months however. Now larger. Presents for operative removal. Findings Large cyst from the dorsal navicular cuneiform joint Description of Procedure Patient identified in the preoperative holding. Informed consent given. Operative extremity marked. Patient received intravenous antibiotics. Patient brought to the operating room where underwent general anesthetic by anesthesia team. Positioned supine on operating room table. Time-out performed confirming the patient, site of the surgery and the plan. left foot prepped draped usual sterile surgical fashion using a ChloraPrep skin solution. Foot ankle exsanguinated and a calf tourniquet inflated to 225 mmHg. The dorsal midfoot cyst was identified and a dorsal longitudinal incision was made 15 blade knife overlying this. Hemostasis controlled electrocautery. Care was taken to isolate and retract the neural elements. A large dorsal cyst with noted deep to the retinaculum. This was freed up circumferentially and was noted to be adherent to the dorsal capsule of the naviculocuneiform joint. This was then transected passed off as specimen. The capsule from the dorsal portion of the joint was excised and the dorsal portion of the joint was debrided with a rongeur. Wound then thoroughly irrigated and the soft tissue closed with 3-0 Monocryl interrupted suture. Skin repaired with 4-0 nylon running suture. Sterile dressing applied. The patient was then woken from anesthesia, extubated and taken to the recovery room in stable condition. All sponge, needle, instrument counts were correct at the end of the case. Estimated Blood Loss 2 Tourniquet Time 26 Drains No Packing No Pathology Yes ( left foot cyst) Complications None Condition Stable Disposition PACU [facility] Billing Surgery - Charge Forward: Surgery Billing ([id number])
== END 2022-07-07 13:51 | disposition home or self-care (01) ==
PROVIDERS: PCP Internal Medicine; Visit Provider Orthopaedic Surgery
PROC: (CPT 28090; principal; 2022-07-07 12:00)
DX: M67.472 Ganglion, left ankle and foot (principal); I10 Essential (primary) hypertension; E03.9 Hypothyroidism, unspecified; E78.5 Hyperlipidemia, unspecified; K21.9 Gastro-esophageal reflux disease without esophagitis; Z79.82 Long term (current) use of aspirin; Z79.891 Long term (current) use of opiate analgesic
CPT/HCPCS: 28090; 36415; 80048; 88305; 93005; A9270; J0690; J1100; J1885; J2405; J2704; J3010; J7120

== ENCOUNTER 2022-12-16 07:51 | Outpatient (CLI) | payer MEDICARE, SELFPAY ==
--- NOTE | ~2022-12-16 | MM_ITS ---
EXAMINATION: MM screening [facility] BI w rosario HISTORY: Screening TECHNIQUE: Craniocaudal and mediolateral oblique 3-D tomosynthesis images were obtained and synthetic 2-D images were generated. CAD analysis was submitted and interpreted. COMPARISON: Comparison to multiple prior studies sequentially, with oldest reviewed study dated 10/10. BREAST PARENCHYMAL COMPOSITION: There are scattered areas of fibroglandular density. FINDINGS: There is no evidence of suspicious mass, calcification, or architectural distortion to sugg est malignancy in either breast. There has been no suspicious interval change. IMPRESSION: 1. No mammographic evidence of malignancy. 2. Recommend routine screening mammography in one year. BI-RADS Category 1: Negative Reviewed, dictated and finalized at location A.
== END 2022-12-16 07:52 | disposition home or self-care (01) ==
LOC: CHSIMG 07:54
PROVIDERS: PCP Internal Medicine; Visit Provider Internal Medicine
DX: Z12.31 Encounter for screening mammogram for malignant neoplasm of breast (principal)
CPT/HCPCS: 77063; 77067

== ENCOUNTER 2023-01-27 13:22 | Outpatient (CLI) | payer MEDICARE, SELFPAY ==
--- NOTE | ~2023-01-27 | DEXA_ITS ---
Bone Density Report Name: SHASHI LONG Age: 72 Sex: Female Ethnicity: White Date of : 1950 Indication: postmenopausal; screening for osteoporosis; height loss; hysterectomy; Referring Provider: Alec Felder Study: Bone densitometry was performed. Exam Date: January 27, 2023 Accession number: [id number] Bone Density: Region BMD T-score Z-score Classification AP Spine(L1, L2, L3) 0.942 -0.7 1.4 Normal Femoral Neck (Left) 0.716 -1.2 0.6 Osteopenia Total Hip (Left) 0.864 -0.6 0.9 Normal Femoral Neck (Right) 0.716 -1.2 0.6 Osteopenia Total Hip (Right) 0.804 -1.1 0.4 Osteopenia Femoral Neck Mean 0.716 -1.2 0.6 Osteopenia Total Hip Mean 0.834 -0.9 0.7 Normal World Health Organization criteria for BMD impression classify patients as: Normal (T-score at or above -1.0), Osteopenia (T-score between -1.0 and -2.5), or Osteoporosis (T-score at or below -2.5). 10-year Fracture Risk: FRAX not reported because: Treated for osteoporosis Clinical Information Provided by Patient: Is being treated for osteoporosis Has used the following medications: Boniva (i.e. ibandronate), Fosamax (i.e. alendronate), Prolia (i.e. denosumab), Vitamin D Has the following medical conditions: Hysterectomy Patient maximum height was 66 Menopause Age: 40 No regular weight bearing exercise Drinks caffeinated beverages Onset of menses at age 14 Number of children 1 Impression: The patient has low bone mass, based on the Left Femoral Neck T-score. Discussion: It is important to ask patients whether they are taking their medications and to encourage continued and appropriate compliance with their osteoporosis therapies to reduce fracture risk. It is also important to review their risk factors and encourage appropriate calcium and vitamin D intakes, exercise, fall prevention and other lifestyle measures. Follow-Up: Consider a repeat BMD and Vertebral Fracture Assessment (VFA) exam in 2 years or sooner if medically necessary, to reassess this patient's status. Reported by: Dr. Dave Elliott on 01/27/2023 1:44:00 PM. Reviewed, dictated and finalized at location Efraín GHOTRA
== END 2023-01-27 13:23 | disposition home or self-care (01) ==
LOC: CHSIMG 13:23
PROVIDERS: PCP Internal Medicine; Visit Provider Internal Medicine
DX: Z78.0 Asymptomatic menopausal state (principal); M85.89 Other specified disorders of bone density and structure, multiple sites
CPT/HCPCS: 77080

== ENCOUNTER 2023-05-04 07:19 | Outpatient (CLI) | payer MEDICARE, SELFPAY ==
--- NOTE | ~2023-05-04 | US_ITS ---
EXAMINATION: US carotid duplex BI DATE: 05/04/2023 07:45 INDICATION: Carotid stenosis TECHNIQUE: Grayscale, color Doppler, and pulsed Doppler images of the cervical carotid arteries were obtained. The degree of vessel stenosis is placed in one of the following categories: normal, <50%, 5 0-69%, >=70% but less than near-occlusion, near-occlusion, or total occlusion. Note that percent sten osis relative to normal distal artery lumen diameter is indirectly measured from velocity measurement s as described by Michael, et al. Radiology 2003; 229:340-346. Notes: Normal: Peak systolic velocity <125 centimeters/sec and no plaque <50%. Peak systolic velocity <125 ( EDV <40; ICA/CCA PSV ratio <2.0; used these factors only a tandem lesions or low cardiac output or co ntralateral disease) 50-69 %: PSV 125-230 (EDV 40-100; ratio 2-4) >= 70% but less than near occlusion: PSV greater than 230 (EDV > 100; ratio> 4.0) Near Occlusion: PSV that is variable; markedly narrowed lumen Occlusion: Absent flow on color/spectral Doppler and no lumen on garcia scale. COMPARISON: None. FINDINGS: RIGHT: The right common carotid artery (CCA) peak systolic velocity (PSV) is 1:15 cm/s. The right internal c arotid artery (ICA) PSV is 72 cm/s. The right ICA end-diastolic velocity (EDV) is 99 cm/s. The right ICA/CCA PSV ratio is 0.63. The external carotid artery (ECA) PSV is 107 cm/s. There is antegrade flow in the right vertebral artery. LEFT: The left CCA PSV is 95 cm/s. The left ICA PSV is 71 cm/s. The left ICA EDV is 29 cm/s. The left ICA/C CA PSV ratio is 0.75. The ECA PSV is 82 cm/s. There is antegrade flow in the left vertebral artery. IMPRESSION: 1. Less than 50% stenosis in the right internal carotid artery by sonographic criteria. 2. Less than 50% stenosis in the left internal carotid artery by sonographic criteria. Reviewed, dictated and finalized at location L. N TRADER IMPRESSION: 1. Less than 50% stenosis in the right internal carotid artery by sonographic kerrie lemus. 2. Less than 50% stenosis in the left internal carotid artery by sonographic mildred ceja.
== END 2023-05-04 07:20 | disposition home or self-care (01) ==
LOC: CHSIMG 07:21
PROVIDERS: PCP Internal Medicine; Visit Provider Internal Medicine
DX: I65.23 Occlusion and stenosis of bilateral carotid arteries (principal)
CPT/HCPCS: 93880

== ENCOUNTER 2023-12-26 12:51 | Outpatient (CLI) | payer MEDICARE, SELFPAY ==
--- NOTE | ~2023-12-26 | MM_ITS ---
EXAMINATION: MM screening [facility] BI w rosario HISTORY: Screening TECHNIQUE: Craniocaudal and mediolateral oblique 3-D tomosynthesis images were obtained and synthetic 2-D images were generated. CAD analysis was submitted and interpreted. COMPARISON: Comparison to multiple prior studies sequentially, with oldest reviewed study dated 11/24. BREAST PARENCHYMAL COMPOSITION: Not dense: There are scattered areas of fibroglandular density. FINDINGS: There is no evidence of suspicious mass, calcification, or architectural distortion to sugg est malignancy in either breast. There has been no suspicious interval change. IMPRESSION: 1. No mammographic evidence of malignancy. 2. Recommend routine screening mammography in one year. BI-RADS Category 1: Negative Reviewed, dictated and finalized at location B.
== END 2023-12-26 12:52 | disposition home or self-care (01) ==
LOC: CHSIMG 12:53
PROVIDERS: PCP Internal Medicine; Visit Provider Internal Medicine
DX: Z12.31 Encounter for screening mammogram for malignant neoplasm of breast (principal)
CPT/HCPCS: 77063; 77067

== ENCOUNTER 2024-01-30 14:43 | Outpatient (CLI) | payer MEDICARE, SELFPAY ==
--- NOTE | ~2024-01-30 | DEXA_ITS ---
Bone Density Report Name: SHASHI LONG Age: 73 Sex: Female Ethnicity: White Date of : 1950 Indication: osteopenia; monitoring treatment; height loss; hysterectomy; Referring Provider: Alec Felder Study: Bone densitometry was performed. Exam Date: January 30, 2024 Accession number: [id number] Bone Density: Region BMD T-score Z-score Classification AP Spine(L1, L2, L3) 0.932 -0.8 1.4 Normal Femoral Neck (Left) 0.685 -1.5 0.4 Osteopenia Total Hip (Left) 0.877 -0.5 1.1 Normal Femoral Neck (Right) 0.734 -1.0 0.8 Normal Total Hip (Right) 0.808 -1.1 0.5 Osteopenia Femoral Neck Mean 0.709 -1.3 0.6 Osteopenia Total Hip Mean 0.843 -0.8 0.8 Normal World Health Organization criteria for BMD impression classify patients as: Normal (T-score at or above -1.0), Osteopenia (T-score between -1.0 and -2.5), or Osteoporosis (T-score at or below -2.5). 10-year Fracture Risk: FRAX not reported because: Treated for osteoporosis Previous Exams: Region Exam Age BMD T-score BMD Change BMD Change Date g/cm2 vs Baseline vs Previous AP Spine (L1-L3) 01/30/2024 73 0.932 -0.8 -0.010 (-1.0%) -0.010 (-1.0%) 01/27/2023 72 0.942 -0.7 Total Hip(Left) 01/30/2024 73 0.877 -0.5 0.013 (1.5%) 0.013 (1.5%) 01/27/2023 72 0.864 -0.6 Total Hip(Right) 01/30/2024 73 0.808 -1.1 0.004 (0.4%) 0.004 (0.4%) 01/27/2023 72 0.804 -1.1 *Denotes significance at 95% confidence level, LSC for AP Spine = 0.022 g/cm2, LSC for Total Hip = 0.027 g/cm2 Clinical Information Provided by Patient: Is being treated for osteoporosis Has used the following medications: Boniva (i.e. ibandronate), Fosamax (i.e. alendronate), Prolia (i.e. denosumab), Vitamin D Has the following medical conditions: Hysterectomy Patient maximum height was 66 Menopause Age: 40 No regular weight bearing exercise Drinks caffeinated beverages Onset of menses at age 14 Number of children 1 Impression: The patient has low bone mass, based on the Left Femoral Neck T-score. No significant bone loss was observed. Discussion: PATIENT UNDER TREATMENT WITH NO SIGNIFICANT BMD LOSS SINCE LAST EXAM. In an untreated patient, BMD typically declines with age. A lack of decline or gain is usually a sign that treatment is efficacious and fracture risk is reduced. It is important to ask patients whether they are taking their medications and to encourage continued and appropria
== END 2024-01-30 14:44 | disposition home or self-care (01) ==
PROVIDERS: PCP Internal Medicine; Visit Provider Internal Medicine
DX: Z78.0 Asymptomatic menopausal state (principal); M85.89 Other specified disorders of bone density and structure, multiple sites
CPT/HCPCS: 77080

== ENCOUNTER 2024-02-29 11:08 | Outpatient (CLI) | payer MEDICARE, SELFPAY ==
--- NOTE | 2024-03-01 13:39 | WPDHOLTEREM ---
Holter/Event Monitor Holter/Event Monitor Date of procedure: 02/29/24 Holter/Event Procedure: 24 Hr Holter Monitor Indications: Palpitations Conclusion: 1. 24 hour holter monitor on 02/29/24. 2. Underlying rhythm is sinus rhythm. HR range 45-141 bpm; average HR 90 bpm. HR at 45 bpm was at 03:21. HR at 141 bpm was at 12:31. 3. There are 10 premature supraventricular complexes. No supraventricular tachycardia. 4. There is 1 premature ventricular complex. No ventricular tachycardia. 5. No sinoatrial or atrioventricular blocks. No significant pauses greater than 2 seconds. 6. No symptoms available for correlation.
== END 2024-02-29 11:09 | disposition home or self-care (01) ==
LOC: CHSCARD 11:09
PROVIDERS: PCP Internal Medicine; Visit Provider Internal Medicine
DX: R00.2 Palpitations (principal)
CPT/HCPCS: 93225; 93226

== ENCOUNTER 2024-06-15 17:12 | Emergency (ER) | payer MEDICARE, SELFPAY ==
--- NOTE | ~2024-06-15 | XR_ITS ---
EXAM: XR hip RT 2V w AP pelvis DATE: 06/15/2024 17:49 HISTORY: fall, Rt. hip pain . COMPARISON: None available. FINDINGS: Decreased mineralization. No fracture or dislocation. No lytic or blastic lesion. Moderate right hip osteoarthritis. Lumbar degenerative disc disease. Dystrophic calcification/ossification estrada perior to the greater trochanter. No erosion or periosteal change. Soft tissues within normal limits. IMPRESSION: No acute osseous finding in the pelvis or right hip. Reviewed, dictated and finalized at location K. LLURGICAL LAB TECHNICIAN
--- NOTE | ~2024-06-15 | XR_ITS ---
EXAM: XR ankle LT min 3V DATE: 06/15/2024 17:48 HISTORY: fall, Lt. ankle pain/swelling . COMPARISON: X-ray foot 07/13/2022, images only. FINDINGS: Decreased mineralization. Oblique distal left fibular fracture at the level of the joint l ine, with 4 mm posterior displacement. No lytic or blastic lesion. Mild scattered degenerative change . Mild plantar enthesopathy. No erosion or periosteal change. Lateral soft tissue swelling. Small ank le joint effusion IMPRESSION: Mildly displaced oblique distal left fibular fracture (Bush B). Reviewed, dictated and finalized at location K. EPT ARTIST
[2024-06-15 17:30] VITALS: BP 152/87; PULSE 113; RESP 18; TEMP 36.6; O2SAT 97
--- NOTE | 2024-06-15 18:07 | ED.LOWEXIN ---
HPI - Extremity Injury (Lower) General Chief Complaint: Extremity Injury, Lower Stated Complaint: Fell Source: patient Mode of arrival: ambulatory Limitations: no limitations History of Present Illness HPI Narrative: Patient is a 74-year-old female with significant past medical history that presents today for fall. Patient was walking into her house and slipped on her front door mat. She fell and twisted her left ankle and then she hit her right hip. So she is having right hip pain and left ankle pain. She is able to walk on however does hurt slightly to walk. MD complaint: hip injury and ankle injury Onset (ago): hour(s) Injury: Left: ankle and Right: hip Type of Injury: blunt and inversion Place: home Severity: mild Severity scale (1-10): 3 Relieving factors: nothing Exacerbating factors: nothing Context: fall and direct blow Other symptoms: none Related Data Home Medications ?Medication ?Instructions ?Recorded ?Confirmed ?Last Taken ?Type aspirin 81 mg tablet,delayed 81 mg PO DAILY 11/22/21 07/25/22 Unknown History release cholecalciferol (vitamin D3) 25 25 mcg PO DAILY 11/22/21 07/25/22 Unknown History mcg (1,000 unit) capsule denosumab 60 mg/mL subcutaneous 60 mg subcut [id number] 11/22/21 07/25/22 Unknown History syringe (Prolia) famotidine 20 mg tablet 20 mg PO DAILY 11/22/21 07/25/22 Unknown History levothyroxine 75 mcg tablet 75 mcg PO DAILY 11/22/21 07/25/22 07/07/22 History (Synthroid) cranberry extract-vitamin C 250 1 cap PO DAILY 06/30/22 07/25/22 Unknown History mg-60 mg capsule alirocumab 75 mg/mL subcutaneous 75 mg subcut Q14D 06/15/24 Unknown History pen injector (Praluent Pen) amlodipine 5 mg tablet 5 mg PO DAILY 06/15/24 Unknown History hydroxychloroquine 200 mg tablet 200 mg PO DAILY 06/15/24 Unknown History losartan 100 mg tablet 100 mg PO DAILY 06/15/24 Unknown History Allergies Allergy/AdvReac Type Severity Reaction Status Date / Time codeine Allergy Severe NAUSEA AND Verified 06/15/24 18:01 VOMITING erythromycin base Allergy Severe NAUSEA AND Verified 06/15/24 18:01 VOMITING Review of Systems Review of Systems: All systems reviewed & are unremarkable except as noted in HPI and below Constitutional: Constitutional: Reports as per HPI Eyes: Eyes: Reports no additional eye complaints ENT: Reports system reviewed and no additional complaints, except as documented Cardiovascular: Cardiovascular: Reports no additional cardiovascular complaints Respiratory: Respiratory: Reports no additional respiratory complaints Gastrointestinal: Gastrointestinal: Reports no additional gastrointestinal complaints Genitourinary: Genitourinary: Reports no additional female genitourinary complaints Musculoskeletal: Musculoskeletal: Reports as per HPI, Reports arthralgias and Reports joint swelling Integumentary/Breasts: Skin/Breast: Reports system reviewed and no additional complaints, except as docu Neurologic: Reports system reviewed and no additional complaints, except as documented Psychiatric: Psychiatric: Reports no additional psychiatric complaints Endocrine: Endocrine: Reports no additional endocrine complaints Hematologic/Lymphatic: Hematologic/Lymphatic: Reports no additional hematologic/lymphatic complaints Allergic/Immunologic: Allergic/Immunologic: Reports no additional allergic/immunologic complaints [facility] [place] Past Medical History Medical History Ganglion cyst of left foot Hypertension GERD (gastroesophageal reflux disease) Hyperlipidemia Hypothyroidism Surgical History Surgical History H/O of hysterectomy with bilateral oophorectomy H/O section Hx of cholecystectomy Hx of appendectomy Social History Social History Smoking status: Never smoker Alcohol intake: current Drinks per week: 1 Alcohol use details: beer weekly Living arrangements: with family Occupation/Education: retired Spiritual care concerns: No Exam Const: General: healthy appearing Nutritional Appearance: well nourished Orientation/consciousness: patient oriented x3 HENMT: Head: normal to inspection Ears: external ears normal Face/Nose/Sinus: Normal external nose present Face and sinus: normal facial exam Mouth: Yes Normal oral and palatal mucosa present Teeth and gingiva: dentition normal Throat: posterior oropharynx normal Eyes: Conjunctivae: conjunctivae normal Pupils: Equal, round and reactive pupils present EOM: EOMs intact bilaterally Direct Ophthalmoscopy: no photophobia Neck: Neck: normal visual inspection Chest: Chest palpation & inspection: normal inspection of the chest Resp: Effort & Inspection: normal respiratory effort Auscultation: clear to auscultation bilaterally Cardio: Rate: regular rate Rhythm: regular rhythm GI: GI Palp: Yes Soft to palpation Back/Spine/Pelvis: Back: no CVA tenderness Skin: General skin exam: normal color Rashes: no rashes Wounds: no wounds Neuro: General: patient oriented x3 Cranial nerves: Yes Nystagmus not present Speech: normal speech Extrem: General: normal to inspection Psych: Mental Status: mental status grossly normal Course Vital Signs Vital signs: Vital Signs Temperature 97.9 F 06/15/24 17:30 Pulse Rate 113 H 06/15/24 17:30 Respiratory Rate 18 06/15/24 17:30 Blood Pressure 152/87 H 06/15/24 17:30 Pulse Oximetry 97 06/15/24 17:30 Oxygen Delivery Room Air 06/15/24 17:30 Temperature 97.9 F 06/15/24 17:30 Pulse Rate 113 H 06/15/24 17:30 Respiratory Rate 18 06/15/24 17:30 Blood Pressure 152/87 H 06/15/24 17:30 Pulse Oximetry 97 06/15/24 17:30 Oxygen Delivery Room Air 06/15/24 17:30 MDM - Extremity Injury (Lower) MDM Narrative Medical decision making narrative: Patient also has a left inversion ankle sprain most likely by the description of the injury. If so over wrapped with an Carlos wrap. If there are any fractures oral treat has noon. Her right hip is also pain from the fall does not seem to have had 1 like fracture away she is walking him most likely is sprained. Will do an x-ray of the right hip and the left ankle and find out. Will treat appropriately. Differential Diagnosis Differential diagnosis: Likely ankle sprain and strain and other ( Hip sprain) Medical Records Attestation: I reviewed the patient's medical records. Lab Data Attestation: I reviewed the patient's lab results. Imaging Data Attestation: I personally reviewed and interpreted this imaging study as follows: Discharge Plan Discharge Clinical Impression: Closed fibular fracture, Acute left ankle pain Patient Disposition: Home, Self-Care Condition: Stable Instructions: Leg Fracture (ED) Additional Instructions: Follow-up with Ortho within 1 week. Take ibuprofen for pain and swelling. Elevate leg at the end the day for least an hour to keep the swelling down. Patient Language: Israeli Prescriptions: No Action amlodipine 5 mg tablet 5 mg PO DAILY losartan 100 mg tablet 100 mg PO DAILY Praluent Pen 75 mg/mL pen injector 75 mg SUBCUT Q14D hydroxychloroquine 200 mg tablet 200 mg PO DAILY levothyroxine [Synthroid] 75 mcg tablet 75 mcg PO DAILY famotidine 20 mg tablet 20 mg PO DAILY cholecalciferol (vitamin D3) 25 mcg (1,000 unit) capsule 25 mcg PO DAILY aspirin 81 mg tablet,delayed release (DR/EC) 81 mg PO DAILY Prolia 60 mg/mL syringe 60 mg subcut [id number] cranberry extract-vitamin C 250-60 mg Capsule 1 cap PO DAILY Follow-up/Referrals: Alec Felder MD [Primary Care Provider] - Time of Disposition: 18:54
[2024-06-15 18:58] VITALS: BP 159/91; PULSE 110; RESP 18; TEMP 37.1; O2SAT 98
[2024-06-15 19:25] VITALS: BP 135/80; PULSE 92; RESP 16; TEMP 37.1; O2SAT 98
== END 2024-06-15 19:25 | disposition home or self-care (01) ==
PROVIDERS: Emergency Provider Family Medicine; PCP Internal Medicine
DX: S82.402A Unspecified fracture of shaft of left fibula, initial encounter for closed fracture (principal); E78.5 Hyperlipidemia, unspecified; E03.9 Hypothyroidism, unspecified; I10 Essential (primary) hypertension; Z79.899 Other long term (current) drug therapy; W01.0XXA Fall on same level from slipping, tripping and stumbling without subsequent striking against object, initial encounter; Y92.009 Unspecified place in unspecified non-institutional (private) residence as the place of occurrence of the external cause
CPT/HCPCS: 29515; 73502; 73610; 99284

== ENCOUNTER 2024-08-01 07:53 | Outpatient (RCR) | payer MEDICARE, SELFPAY ==
--- NOTE | 2024-08-01 08:47 | OPREHPOC ---
Outpatient Therapy Plan of Care This is a Multidisciplinary Plan of Care that may contain components documented by all disciplines (PT, OT, and ST.) PT Problem 1 PT Problem #1 Knowledge Deficit PT Goal 1 Goal / Goal Update 1. independent and compliant with HEP Target Visit 6 PT Problem 2 PT Problem #2 Pain PT Goal 1 Goal / Goal Update 1. no pain in the L ankle in the last week Target Visit 12 PT Problem 3 PT Problem #3 Impaired Range of Motion PT Goal 1 Goal / Goal Update 1. 10 degrees or better active L ankle DF 2. 15 degrees or better active L ankle EV Target Visit 12 PT Problem 4 PT Problem #4 Impaired Strength PT Goal 1 Goal / Goal Update 1. improve L ankle strength to 4+/5 or better overall Target Visit 12 PT Problem 5 PT Problem #5 Impaired Functional Mobility PT Goal 1 Goal / Goal Update 1. LEFS to display 30% or less functional deficits 2. ambulate with normal gait mechanics without AD or bracing. 3. reciprocal ambulation up and down steps Target Visit 12
--- NOTE | 2024-08-01 08:47 | PTOPEVAL1 ---
Assessment and note entered by JT File, PT Evaluation Information Assessment Status Evaluation ICD-10 Condition Codes (PT) Pain in left ankle and joints of left foot M25.572 Onset 06/15/24 Subjective Information patient reports she broke her ankle on 06/15/24. she reports she walked out her front door and slipped on her mat. she was in a cast/splint briefly, but then was put in a boot for several weeks. she reports she just got the boot off yesterday. she reports she had no surgery. she reports wearing the boot was uncomfortable. she reports she is now in brace and tennis shoe. she reports Reported Pain Level Pain Score 3: Self Report Assessment PT Clinical Summary mrs. padilla is a 74 yo woman who presents to skilled PT services for evaluation and treatment of L ankle pain following fracture of the L ankle. she presents today with decreased L ankle rom, L ankle weakness, pain, and abnormal gait mechanics. continued skilled PT is indicated to improve her objective/functional deficits and progress towards a return to her prior level functional activity performance and quality of life. Plan of Care Interventions Electrical Stimulation,Gait Training,Hot Pack/Cold Pack,Manual Therapy,Neuro Re-education,Patient/ Caregiver Education,Therapeutic Activities, Therapeutic Exercise PT Services Indicated Yes Treatment Frequency and 3x weekly for 12 visits Duration These treatments will address the objective and functional deficits as defined above. The patient will be advanced safely and appropriately in order for the patient to progress towards his/her prior level of function. Additional exercises will be introduced and as well as a comprehensive home exercise program upon discharge, if needed, ?to ensure carryover of functional gains achieved in the clinic. This treatment plan has been reviewed and agreement upon by the patient.
--- NOTE | 2024-08-28 09:07 | OPREHPOC ---
Outpatient Therapy Plan of Care This is a Multidisciplinary Plan of Care that may contain components documented by all disciplines (PT, OT, and ST.) PT Problem 1 PT Problem #1 Knowledge Deficit PT Goal 1 Goal / Goal Update 1. independent and compliant with HEP Target Visit 6 Progress Met PT Goal 2 Goal / Goal Update continue to progress Target Visit 18 PT Problem 2 PT Problem #2 Pain PT Goal 1 Goal / Goal Update 1. no pain in the L ankle in the last week Target Visit 12 Progress Not Met PT Goal 2 Goal / Goal Update continue Target Visit 18 PT Problem 3 PT Problem #3 Impaired Range of Motion PT Goal 1 Goal / Goal Update 1. 10 degrees or better active L ankle DF - progress towards 2. 15 degrees or better active L ankle EV -met Target Visit 12 Progress Partially Met PT Goal 2 Goal / Goal Update continue #1 Target Visit 18 PT Problem 4 PT Problem #4 Impaired Strength PT Goal 1 Goal / Goal Update 1. improve L ankle strength to 4+/5 or better overall -progress towards Target Visit 12 Progress Not Met PT Goal 2 Goal / Goal Update continue Target Visit 18 PT Problem 5 PT Problem #5 Impaired Functional Mobility PT Goal 1 Goal / Goal Update 1. LEFS to display 30% or less functional deficits -not tested 2. ambulate with normal gait mechanics without AD or bracing. -not met 3. reciprocal ambulation up and down steps -met Target Visit 12 Progress Partially Met PT Goal 2 Goal / Goal Update continue #1 & 2 Target Visit 18
--- NOTE | 2024-08-28 09:07 | PTOPPROG ---
Assessment and note entered by Kaylyn Holly, PT Evaluation Information Assessment Status Progress ICD-10 Condition Codes (PT) Pain in left ankle and joints of left foot M25.572 Onset 06/15/24 Subjective Information Elo reports her ankle is doing well. She is no longer having pain at the ankle except occasional soreness after being on her feet all day. She has been having pain in her foot near the ball of the foot between the toes. She reports she was having this pain before she fractured her ankle and it seemed better when she wasn't walking much but now it has returned. She also notes more pain by the end of the day and she has to sit down. She is limited to walking 2-3 blocks at a time and still notes weakness in the ankle. Assessment PT Clinical Summary Elo Zavaleta is nearly 11 weeks s/p left ankle fracture. She is reporting minimal left ankle pain however, she has been experiencing left dorsal foot pain between the 2nd and 3rd metatarsals and over to the lateral aspect of the 5th metatarsal. 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 She demonstrates overall improvements in left ankle AROM and strength as well as gait and balance. She does demonstrate altered gait and ongoing weakness in the left foot and ankle that she will continue to benefit from skilled PT. She is progressing toward her goals and has met 3 out of 8 goals at this time. We would like to continue skilled PT 2 times a week for 8 additional visits. Plan of Care Interventions Gait Training,Manual Therapy,Neuro Re-education, Patient/Caregiver Education,Therapeutic Activities ,Therapeutic Exercise PT Services Indicated Yes Treatment Frequency and Continue skilled PT 2 times a week for 8 more Duration visits These treatments will address the objective and functional deficits as defined above. The patient will be advanced safely and appropriately in order for the patient to progress towards his/her prior level of function. Additional exercises will be introduced and as well as a comprehensive home exercise program upon discharge, if needed, ?to ensure carryover of functional gains achieved in the clinic. This treatment plan has been reviewed and agreement upon by the patient.
== END 2024-09-02 20:00 | disposition home or self-care (01) ==
LOC: CHSPT 07:53
PROVIDERS: Visit Provider Orthopaedic Surgery
DX: S82.832D Other fracture of upper and lower end of left fibula, subsequent encounter for closed fracture with routine healing (principal); W00.9XXD Unspecified fall due to ice and snow, subsequent encounter
CPT/HCPCS: 97016; 97110; 97112; 97140; 97161; 97530; 97750

== ENCOUNTER 2024-12-27 07:20 | Outpatient (CLI) | payer MEDICARE, SELFPAY ==
--- NOTE | ~2024-12-27 | MM_ITS ---
EXAMINATION: MM screening santy BI w rosario HISTORY: Screening TECHNIQUE: Craniocaudal and mediolateral oblique 3-D tomosynthesis images were obtained and synthetic 2-D images were generated. CAD analysis was submitted and interpreted. COMPARISON: Comparison to multiple prior studies sequentially, with oldest reviewed study dated 01/2019. BREAST PARENCHYMAL COMPOSITION: 12/04/2018 FINDINGS: There is no evidence of suspicious mass, calcification, or architectural distortion to sugg est malignancy in either breast. There has been no suspicious interval change. IMPRESSION: 1. No mammographic evidence of malignancy. 2. Recommend routine screening mammography in one year. BI-RADS Category 1: Negative Reviewed, dictated and finalized at location []
== END 2024-12-27 07:21 | disposition home or self-care (01) ==
LOC: CHSIMG 07:20
PROVIDERS: PCP Internal Medicine; Visit Provider Internal Medicine
DX: Z12.31 Encounter for screening mammogram for malignant neoplasm of breast (principal)
CPT/HCPCS: 77063; 77067

== ENCOUNTER 2025-03-04 12:29 | Outpatient (CLI) | payer MEDICARE, SELFPAY ==
--- NOTE | ~2025-03-04 | DEXA_ITS ---
Bone Density Report Name: SHASHI LONG Age: 74 Sex: Female Ethnicity: White Date of : 1950 Indication: osteopenia; hyperparathyroidism; height loss; prior fracture; hysterectomy; Referring Provider: Alec Felder Study: Bone densitometry was performed. Exam Date: March 04, 2025 Accession number: [id number] Bone Density: Region BMD T-score Z-score Classification AP Spine(L1, L2, L3) 0.943 -0.7 1.5 Normal Femoral Neck (Left) 0.688 -1.5 0.5 Osteopenia Total Hip (Left) 0.884 -0.5 1.2 Normal Femoral Neck (Right) 0.738 -1.0 1.0 Normal Total Hip (Right) 0.817 -1.0 0.6 Normal Femoral Neck Mean 0.713 -1.2 0.7 Osteopenia Total Hip Mean 0.850 -0.8 0.9 Normal World Health Organization criteria for BMD impression classify patients as: Normal (T-score at or above -1.0), Osteopenia (T-score between -1.0 and -2.5), or Osteoporosis (T-score at or below -2.5). 10-year Fracture Risk(1): Major Osteoporotic Fracture 16% Hip Fracture 2.5% Reported Risk Factors: [place] (), Neck BMD=0.688, BMI=25.4, previous fracture (1) FRAX(R) Version 3.08. Fracture probability calculated for an untreated patient. Fracture probability may be lower if the patient has received treatment. Previous Exams: Region Exam Age BMD T-score BMD Change BMD Change Date g/cm2 vs Baseline vs Previous AP Spine (L1-L3) 03/04/2025 74 0.943 -0.7 -0.010 (-1.1%) 0.011 (1.2%) 01/30/2024 73 0.932 -0.8 -0.021 (-2.2%) -0.010 (-1.0%) 01/27/2023 72 0.942 -0.7 -0.011 (-1.2%) -0.007 (-0.7%) 12/08/2020 70 0.949 -0.6 -0.005 (-0.5%) -0.046 (-4.7%) 11/27/2019 69 0.995 -0.2 0.042 (4.4%)*! 0.118 (13.4%)* 11/24/2017 67 0.878 -1.3 -0.076 (-8.0%) -0.023 (-2.5%) 10/03/2014 64 0.901 -1.1 -0.053 (-5.6%) -0.053 (-5.6%) 11/17/2008 58 0.954 -0.6 Total Hip(Left) 03/04/2025 74 0.884 -0.5 0.068 (8.4%)# 0.006 (0.7%) 01/30/2024 73 0.877 -0.5 0.062 (7.6%)# 0.013 (1.5%) 01/27/2023 72 0.864 -0.6 0.049 (6.0%)# 0.055 (6.8%)* 12/08/2020 70 0.809 -1.1 -0.006 (-0.7%) -0.005 (-0.6%) 11/27/2019 69 0.814 -1.1 -0.002 (-0.2%) 0.020 (2.5%) 11/24/2017 67 0.794 -1.2 -0.021 (-2.6%) 0.014 (1.9%) 10/03/2014 64 0.779 -1.3 -0.036 (-4.4%) -0.036 (-4.4%) 11/17/2008 58 0.815 -1.0 Total Hip(Right) 03/04/2025 74 0.817 -1.0 0.046 (5.9%)# 0.009 (1.1%) 01/30/2024 73 0.808 -1.1 0.037 (4.8%)# 0.004 (0.4%) 01/27/2023 72 0.804 -1.1 0.034 (4.4%)# 0.050 (6.7%)* 12/08/2020 70 0.754 -1.5 -0.017 (-2.2%) 0.001 (0.1%)# 11/27/2019 69 0.753 -1.5 -0.017 (-2.3%) 0.029 (4.1%)* 10/03/2014 64 0.724 -1.8 -0.047 (-6.1%) -0.047 (-6.1%) 11/17/2008 58 0.771 -1.4 *Denotes significance at 95% confidence level, LSC for AP Spine = 0.022 g/cm2, LSC for Total Hip = 0.027 g/cm2 # Denotes dissimilar scan types or analysis methods Clinical Information Provided by Patient: Has had a low trauma fracture Has used the following medications: Prolia (i.e. denosumab), Vitamin D Has the following medical conditions: Hyperparathyroidism, Hysterectomy Patient maximum height was 66. Menopause Age: 40 No regular weight bearing exercise Drinks caffeinated beverages Onset of menses at age 12 Number of children 1 Impression: The patient has low bone mass, based on the Left Femoral Neck T-score. The patient has risk factors, including: previous fracture. No significant bone loss was observed. Discussion: BONE DENSITY IS LOW AT ONE OR MORE SKELETAL SITES. This patient's lowest T-score is low at one or more skeletal sites. It meets the World Health Organization's (WHO) criteria for ?low bone mass? (T-score between -1.0 and -2.5). The patient's 10-year risk of fracture as calculated by FRAX is less than the threshold where pharmacological therapy is recommended by the National Osteoporosis Foundation (NOF). However, all treatment decisions require clinical judgment and consideration of individual patient factors, including patient preferences, comorbidities, previous drug use, risk factors not captured in the FRAX model (e.g., frailty, falls, vitamin D deficiency, increased bone turnover, interval significant decline in bone density) and possible under or overestimation of fracture risk by FRAX. The patient should follow a healthful lifestyle (good nutrition with adequate calcium and vitamin D, and appropriate weight-bearing exercise). Follow-Up: Consider repeating this study in 2 to 3 years to reassess this patient's status, or sooner if there is some new clinical indication. Reported by: VERONICA on 03/04/2025 12:51:00 PM. Reviewed, dictated and finalized at location A.
== END 2025-03-04 12:30 | disposition home or self-care (01) ==
LOC: CHSIMG 12:30
PROVIDERS: PCP Internal Medicine; Visit Provider Internal Medicine
DX: Z78.0 Asymptomatic menopausal state (principal); M85.89 Other specified disorders of bone density and structure, multiple sites
CPT/HCPCS: 77080

== ENCOUNTER 2025-03-08 07:21 | Outpatient (CLI) | payer MEDICARE, SELFPAY ==
--- NOTE | ~2025-03-08 | MR_ITS ---
EXAMINATION: MR hip RT wo con DATE: 03/08/2025 08:18 INDICATION: One month of right hip pain TECHNIQUE: Magnetic resonance imaging (MRI) of the right hip was performed without intravenous contrast. Sequences included full-field axial PD-weighted FS FSE and T1-weighted FSE, coronal of the pelvis with PD-weighted FS FSE, small field of view of the right hip with axial PD-weighted FS FSE, sagittal PD- weighted FS FSE and coronal PD weighted FS FSE. Additional radial T1-weighted FGR oriented orthogonal to the acetabular rim were obtained for evaluation of the labrum. COMPARISON: None FINDINGS: Bones/labrum/cartilage: Alignment is normal. No fracture, avascular necrosis or pathologic marrow replacing process. Diffuse degenerative tearing of the right acetabular labrum which appears globular with diffuse amorphous increased signal. Moderate to severe osteoarthritis of the right hip with posterior superior predominant nonuniform joint space narrowing or there is full/near full-thickness cartilage loss with subarticular edema-like signal change at the posterior superior aspect of the right femoral head. Moderate-sized marginal osteophytes about the humeral head. Additional degenerative changes in the lumbar spine with severe disc height loss and degenerative endplate change at L5-S1 and mild disc height loss at L3-L4 and L4-L5. Mild to moderate bilateral sacroiliac osteoarthritis and severe osteoarthritis at the bilateral L5-S1 facet joints. Fluid: Likely reactive small right hip joint effusion. Physiologic amount fluid at the left hip joint. Small amount of fluid consistent with mild bursitis at the left gluteus minimus, trochanteric and ischial bursae. No free fluid in the pelvis or other abnormal fluid collections. Soft tissues: Mild left-sided and moderate right-sided tendinopathy of the bilateral gluteus medius tendons. There is there is a 10 x 6 mm focus of absent signal corresponding to a globular regions of amorphous calcification on prior radiographs at the posterior aspect of the distal right gluteus medius tendon consistent with calcific tendinitis. There is an avulsion of the contralateral left gluteus minimus and anterior most gluteus medius tendons from the left greater tuberosity which is likely chronic given the associated fatty atrophy of the left gluteus minimus and anterior regions muscle bellies. Small amount of fluid in the left gluteus minimus bursa overlying the denuded anterior facet footplate of the left greater trochanter. Additional small amount of fluid in the left ischial bursa with mild tendinopathy without discrete tear at the origin of the proximal left hamstring tendons. The bilateral iliopsoas tendons and rectus femoris tendons are normal. The uterus is not identified and has likely been surgically resected. Multiple diverticula along the sigmoid colon without adjacent from trace stranding to suggest diverticulitis. Decompressed bladder is unremarkable. No pathologically enlarged pelvic/inguinal lymphadenopathy. IMPRESSION: 1. Moderate to severe right hip osteoarthritis with diffuse labral degeneration and likely reactive small right hip joint effusion. 2. Moderate tendinopathy and calcific tendinitis at the distal right gluteus medius tendon. 3. Mild left gluteus minimus and trochanteric bursitis with likely chronic avulsion of the anterior facet footplate of the left radius minimus tendon extending slightly posterior to also include the anteriormost portion of the left gluteus medius tendon with some fatty atrophy of the associated muscles. 4. Mild left ischial bursitis with mild tendinopathy without discrete or very proximal left hamstring tendons. 5. Sigmoid diverticulosis. Reviewed, dictated and finalized at location A. IMPRESSION: 1. Moderate to severe right hip osteoarthritis with diffuse labral degeneration and likely reactive small right hip joint effusion. 2. Moderate tendinopathy and calcific tendinitis at the distal right gluteus me dius tendon. 3. Mild left gluteus minimus and trochanteric bursitis with likely chronic avul gaviota of the anterior facet footplate of the left radius minimus tendon extendin g slightly posterior to also include the anteriormost portion of the left glute us medius tendon with some fatty atrophy of the associated muscles. 4. Mild left ischial bursitis with mild tendinopathy without discrete or very p roximal left hamstring tendons. 5. Sigmoid diverticulosis.
== END 2025-03-08 07:22 | disposition home or self-care (01) ==
LOC: CHSIMG 07:22
PROVIDERS: PCP Internal Medicine; Visit Provider Internal Medicine
DX: M25.551 Pain in right hip (principal); M16.11 Unilateral primary osteoarthritis, right hip; M25.451 Effusion, right hip; M76.01 Gluteal tendinitis, right hip; K57.30 Diverticulosis of large intestine without perforation or abscess without bleeding
CPT/HCPCS: 73721

== ENCOUNTER 2025-05-07 10:04 | Outpatient (CLI) | payer MEDICARE, SELFPAY ==
--- NOTE | ~2025-05-07 | CT_ITS ---
EXAMINATION: CT_LERTCHWO_CT DATE: 05/07/2025 10:23 INDICATION: Right hip pain and osteoarthritis for preoperative planning TECHNIQUE: High resolution computed tomography (CT) of the right thigh including the entire pelvis and contralateral left thigh was performed without intravenous contrast. Additional sagittal and coronal reconstructions were performed. Automated exposure control and iterative reconstruction technique were employed. The dose-length product was 843.46 mGy-cm. COMPARISON: Radiographs dated 03/20/2025 and MRI dated 03/08/2025 FINDINGS: Bone alignment is normal. No fracture or suspected osteonecrosis. Moderate to severe osteoarthritis at the right hip. Small right hip joint effusion. Mild osteoarthritis at the contralateral left hip and at both knees with minimal right knee joint effusion. Enthesopathic ossifications and calcifications at the trochanteric insertions of the bilateral gluteal tendons. There is fatty atrophy and proximal retraction of the myotendinous junction of the left gluteus medias and minimus muscle bellies consistent with chronic at least partial tears of the more distal tendons. Otherwise normal and symmetric muscle bulk in the pelvis and bilateral thighs. There are small bilateral fat-containing inguinal hernias. The uterus is not identified and has likely been surgically resected. Decompressed bladder is unremarkable. Mild to moderate sigmoid diverticulosis without adjacent from trace stranding to suggest diverticular colitis. No free fluid in the pelvis. No pathologically enlarged pelvic or inguinal lym phadenopathy. IMPRESSION: 1. Moderate to severe right hip osteoarthritis with small hip joint effusion. 2. Chronic at least partial tears of the distal left gluteus medius and minimus tendons with secondary fatty atrophy of the muscle belly and proximal retraction of the gluteus medius myotendinous junction. Reviewed, dictated and finalized at location A. TION COORDINATOR IMPRESSION: 1. Moderate to severe right hip osteoarthritis with small hip joint effusion. 2. Chronic at least partial tears of the distal left gluteus medius and minimus tendons with secondary fatty atrophy of the muscle belly and proximal retracti on of the gluteus medius myotendinous junction.
--- NOTE | 2025-05-07 10:42 | ECG_ITS ---
Test Date: 2025-05-07 10:52:25 Measurements Intervals [place] Rate: 56 P: 47 MN: 190 QRS: 24 QRSD: 69 T: 20 QT: 396 QTc: 382 Interpretive Statements SINUS BRADYCARDIA BASELINE ARTIFACT- I, II, AVR, AVF BORDERLINE ECG No previous ECG available for comparison Electronically Signed On 05-07-2025 10:56:47 CLINICAL DATA MANAGEMENT DIRECTOR by Jeet Fisher D.O.
[2025-05-07 11:01] LABS: Hematocrit 38.5 % (37.0-47.0); Hemoglobin 12.4 g/dL (12.0-15.0)
[2025-05-07 11:12] LABS: Albumin Level 4.3 g/dL (3.5-5.1); Estimated Glomerular Filt Rate 52; Glucose 68 mg/dL (65-110)
== END 2025-05-07 10:05 | disposition home or self-care (01) ==
PROVIDERS: PCP Internal Medicine; Visit Provider Orthopaedic Surgery
DX: Z01.818 Encounter for other preprocedural examination (principal); E78.5 Hyperlipidemia, unspecified; M16.11 Unilateral primary osteoarthritis, right hip; M25.451 Effusion, right hip
CPT/HCPCS: 36415; 73700; 82040; 82565; 82947; 85014; 85018; 93005